=== PATIENT | female | born 1985 ===

== ENCOUNTER 2017-02-03 09:02 | Emergency (ER) | payer BC ==
[2017-02-03 10:02] LABS: BASOPHILS % 0.9 (0.0-1.5); EOSINOPHILS % 0.7 % (0.0-6.8); MEAN CORPUSCULAR HEMOGLOBIN 27.8 pg (28.0-34.0); MEAN CORPUSCULAR VOLUME 88.3 fl (80.0-100.0); MONOCYTES % 4.2 % (0.0-11.0); NEUTROPHILS # 2.9 # k/uL (1.4-7.7)
[2017-02-03 10:16] LABS: eGFR (African) > 60; eGFR (Non-African) > 60
--- NOTE | 2017-02-03 10:20 | ED Physician Documentation ---
General Adult - HISTORIAN Historian: patient - HPI Chief Complaint: Allergic Reaction Onset: hours (0830) Timing: still present, better Severity: moderate Further Comments: yes (Ate breakfast this AM, within a short period of time stated to have some nausea, vomited one time, started to have some swelling to the facial area, hands, states that her eyes were swollen shut. Has not had any previous food allergies that she is aware of. Denies , had negative HCG on admission. No wheezing noted.) - ROS CONST: other (hs felt tired a lot). denies: fever, chills - PAST HX Past History: none, other (alcohol dependency) Surgeries/Procedures: other (tonsilectomy) Allergies/Adverse Reactions: Allergies Allergy/AdvReac Type Severity Reaction Status Date / Time erythromycin base Allergy Intermediate Throat Verified 02/03/17 09:21 Swelling Sulfa (Sulfonamide Allergy Intermediate Face Verified 02/03/17 09:21 Antibiotics) Swelling Latex, Natural Rubber Allergy Mild Eye Verified 02/03/17 09:21 Swelling zolpidem tartrate AdvReac Mild Nausea/Vomi Verified 02/03/17 09:21 [From Ambien] ting Home Medications: Ambulatory Orders Medication Instructions Recorded Buspirone HCl [Buspar] 15 mg PO TID 02/03/17 Carbamazepine [Tegretol] 200 mg PO TID 02/03/17 Gabapentin [Gabapentin] 800 mg pe PO BID 02/03/17 Levothyroxine Sodium [Unithroid] 125 mcg PO DAILY 02/03/17 Pantoprazole Sodium [Protonix] 40 mg PO BID 02/03/17 Prazosin HCl [Minipress] 1 mg PO HS 02/03/17 Trazodone HCl [Desyrel] 150 mg PO HS 02/03/17 Trihexyphenidyl HCl [Artane] 5 mg PO TID 02/03/17 Ziprasidone HCl [Geodon] 60 mg PO HS 02/03/17 - SOCIAL HX Smoking History: greater than 1 pack/day (2 ppd) Alcohol Use: heavy Drug Use: none - FAMILY HX Family History: No - REVIEWED ASSESSMENTS Nursing Assessment Reviewed: Yes Vitals Reviewed: Yes General Adult Physical Exam - PHYSICAL EXAM GENERAL APPEARANCE: mild distress EENT: eye inspection normal, ENT inspection normal, pharynx normal, no signs of dehydration, other (mild facial edema noted ) NECK: normal inspection, thyroid normal, supple RESPIRATORY: no resp distress, chest non-tender, breath sounds normal. No: wheezes, rales, rhonchi CVS: reg rate & rhythm, heart sounds normal, equal pulses ABDOMEN: soft, no organomegaly, normal bowel sounds BACK: normal inspection SKIN: warm/dry NEURO: oriented X3, CN's nml as tested, mood/affect nml, cognition normal Discharge Clincal Impression: Allergic reaction Qualifiers: Encounter type: initial encounter Qualified Code(s): T78.40XA - Allergy, unspecified, initial encounter Referrals: Primary Doctor,No [Primary Care Provider] - 2 Days Additional Instructions: Try to see what may have caused reaction. Avoid any makeup on your face for the next 7 days. Take Benadryl at the start if another reaction occurs. Stay well hydrated. Home Medications: Ambulatory Orders Buspirone HCl [Buspar] 15 mg PO TID 02/03/17 Carbamazepine [Tegretol] 200 mg PO TID 02/03/17 Gabapentin [Gabapentin] 800 mg pe PO BID 02/03/17 Levothyroxine Sodium [Unithroid] 125 mcg PO DAILY 02/03/17 Pantoprazole Sodium [Protonix] 40 mg PO BID 02/03/17 Prazosin HCl [Minipress] 1 mg PO HS 02/03/17 Trazodone HCl [Desyrel] 150 mg PO HS 02/03/17 Trihexyphenidyl HCl [Artane] 5 mg PO TID 02/03/17 Ziprasidone HCl [Geodon] 60 mg PO HS 02/03/17 Condition: Stable Disposition: 01 HOME, SELF-CARE Decision to Admit: NO Date of Decison to Admit: 02/03/17 Decision Time: 10:18
[2017-02-03] MEDS: methylPREDNISolone SOD SUCC 125 MG/2 ML VIAL IVP ONE (10:35)
[2017-02-03 10:45] VITALS: BP 96/79
== END 2017-02-03 10:45 | disposition home or self-care (01) ==
LOC: ED 09:02
DX: T78.40XA Allergy, unspecified, initial encounter (principal); X58.XXXA Exposure to other specified factors, initial encounter; Y93.9 Activity, unspecified; Y99.9 Unspecified external cause status; F17.210 Nicotine dependence, cigarettes, uncomplicated
CPT/HCPCS: 80053; 81025; 85025; J2930; 96372; 99283; S1016